=== PATIENT | female | born 1970 | race Caucasian/White ===

== ENCOUNTER 2017-08-03 01:15 | Emergency (ER) | payer SELFPAY ==
[~2017-08-03] VITALS: Ht 177.8 cm; Wt 73.0 kg
[2017-08-03] MEDS: HYDROmorphone 1 MG/ML, 1ML IVPush PRN ×2 (00:20→00:22)
[2017-08-03] MEDS ORDERED: SODIUM CHLORIDE 0.9% 1,000 ML IV ONE (01:19)
[2017-08-03] MEDS ORDERED: HYDROmorphone 1 MG/ML, 1ML ONE ×2 (01:21→01:26)
[2017-08-03] MEDS ORDERED: ONDANSETRON 2MG/ML, 2ML ONE (01:21)
[2017-08-03] MEDS ORDERED: SODIUM CHLORIDE FLUSH 10ML SYR IVF ONE ×2 (01:30→10:00)
[2017-08-03] MEDS ORDERED: ONDANSETRON 2MG/ML, 2ML IVPush ONE (01:30)
[2017-08-03] MEDS ORDERED: PLEASE ENTER ALLERGIES MC SCH ×2 (01:30)
[2017-08-03] MEDS ORDERED: OMNIPAQUE 350 MG/ML, 100ML BOTTLE ONE (01:45)
[2017-08-03 01:55] LABS: HEMATOCRIT 39.1 % (34.6-47.8); HEMOGLOBIN 13.1 g/dL (11.7-16.4); WHITE BLOOD COUNT 10.1 x10^3/uL (3.4-10)
[2017-08-03 02:08] LABS: ASPARTATE AMINO TRANSFERASE 6 U/L (15-37); BLOOD UREA NITROGEN 19 mg/dL (7-18)
[2017-08-03 02:16] LABS: IS PT STATUS REG ER OR PRE ER? YES
[2017-08-03] MEDS ORDERED: OCTREOTIDE 100MCG/ML, 1ML (0.1MG/ML) ONE (02:33)
[2017-08-03] MEDS ORDERED: LORazepam 2 MG/ML, 1ML ONE ×3 (02:35→09:52)
[2017-08-03] MEDS ORDERED: LORazepam 2 MG/ML, 1ML IVPush ONE ×3 (03:00→10:00)
[2017-08-03 04:50] LABS: IS PT STATUS REG ER OR PRE ER? YES
[2017-08-03] MEDS ORDERED: MAALOX/HYOSCYAMINE/LIDOCAINE 45 ML BTL ONE (07:55)
[2017-08-03] MEDS ORDERED: MAALOX/HYOSCYAMINE/LIDOCAINE 45 ML BTL PO ONE (08:00)
[2017-08-03] MEDS ORDERED: PANTOPRAZOLE 40 MG IV IVPush ONE (09:00)
[2017-08-03] MEDS ORDERED: PANTOPRAZOLE 40 MG IV ONE (09:04)
[2017-08-03] MEDS ORDERED: PANTOPRAZOLE 20MG TABLET ONE (09:12)
[2017-08-03] MEDS ORDERED: LORazepam 2 MG/ML, 1ML IM ONE (10:00)
[2017-08-03] MEDS ORDERED: SODIUM CHLORIDE 0.9% 1,000ML IVBOLUS ONE (10:00)
[2017-08-03] MEDS ORDERED: PANTOPROZOLE 40MG TABLET PO ONE (10:00)
[2017-08-03] MEDS ORDERED: ZIPRASIDONE 20 MG INJ IM ONE ×2 (10:07→10:30)
[2017-08-03 10:24] LABS: DAU SCREEN DISCLAIMER
[2017-08-03 15:22] VITALS: BP 146/87
== END 2017-08-03 16:00 | disposition home or self-care (01) ==
LOC: ED 02:25
DX: R10.84 Generalized abdominal pain (principal)
CPT/HCPCS: 36415; 71010; 71275; 74175; 76700; 80053; 80307; 81001; 82010; 82140; 83605; 83690; 84484; 85025; 85610; 85730; 87077; 87086; 87186; 93005; 96361; 96372; 96374; 96375; 96376; 99285; J1170; J2060; J2405; J3486; J7030; Q9967; G0479